=== PATIENT | male | born 1975 | race African-American/Black ===

== ENCOUNTER 2025-09-06 02:29 | Day surgery (SDC) | payer MEDICARE, SELFPAY ==
[2025-09-04 09:20] VITALS: BMI 31.6
--- NOTE | 2025-09-04 09:28 | SUR.PREOP ---
[facility] has started construction of its new state of the art ER which will open Spring 2026. With this, we anticipate parking may be a challenge for some our surgical patients and families. Parking spaces are limited but are available for all Surgical, obstetrics, and ER patients sharing this lot. If you arrive and find you are having a hard time finding a parking space, please note that we understand the challenges, please drive around the hospital and park near Hospital Entrance 1. When you enter this entrance, you can ask a volunteer to direct or take you back to the surgical waiting area to check in. We appreciate everyone?s understanding of these expected challenges while we build for your future. Report to the Outpatient Waiting Room, entrance under the green pavilion located off [address], at time 6:45a.m. on date 09/06/2025 Planned Procedure Time: 8:45a.m.? Time changes happen often and if your time is changed the preop area will call you the afternoon before. - You and your visitor will be asked to self-screen and do not enter if you have any COVID symptoms. Please call surgeon if you need to reschedule. - A mask is optional within the hospital at this time. Patients may have clear liquids (water, carbonated beverages, clear teas, apple juice) until 3 hours prior to surgery with a maximum of 20 ounces. - No food from midnight until time of surgery and no smoking, or chewing tobacco (or any form of nicotine). No chewing gum, candy or mints. Take only the following medications with a SIP of water on the morning of surgery: amopidine DO NOT STOP ANY OF YOUR OTHER PRESCRIPTION MEDICATIONS PRIOR TO SURGERY EXCEPT THE FOLLOWING Hold all vitamins and supplements for 3 days per anesthesiologist. Medications to discontinue per physician N/A Date to take last dose N/A Please no make-up, nail slovak, hairspray, perfume, deodorant, or body powder the day of surgery.? No jewelry (including any body piercings) or valuables the day of surgery, leave them at home.? Please take a shower or bath the night before, or the morning of, surgery with an antibacterial soap.? Wear comfortable, loose fitting clothing.? Children are encouraged to wear pajamas. - Jewelry must be removed prior to entering the operating room.? Rings and piercings that are not removed may be cut off. - The hospital will not accept responsibility for valuables.? - Please leave all valuables, including medications, at home the day of surgery. If you are going home after surgery, a licensed caterpillar driver must drive you home.? - NO public transportation without another adult if you receive anesthesia. - We recommend that an adult stay with you for 24 hours following discharge. - We also recommend that you do not drive, make important decision, drink alcoholic beverages, or take any drugs that were not prescribed by your health care provider for at least 24 hours after your discharge time. For Pediatric surgeries, we recommend two adults accompany the child home. Follow any additional instructions given to you from your surgeon. Telephone instructions given to Shiv Ohara and asked if any additional questions and then verbalized understanding. Patient advised to call surgeon office or pre surgery nurse liaison [phone] if any additional questions.
[2025-09-06] VITALS (10 sets, daily range): BP systolic 81–147; BP diastolic 50–92; PULSE 70–88; RESP 10–18; TEMP 36.1–36.6; O2SAT 98–100; BMI 31.8
--- OUTSIDE RECORDS SUMMARY | 2025-09-06 02:33 | XMS_ITS | Clinical Summary ---
Author Organization [facility] Address [address] [place] [address] Phone Care Team Providers Care Rolling Down Machine Operator Name Role Phone João Mandujano APRN, LOCOMOTIVE MECHANIC Primary Care Provider + Allergies Active Allergy Reactions Criticality Noted Date Comments Fish Allergy Swelling 09/19/2015 Medications atorvastatin (LIPITOR) 80 MG Tablet Take 1 Tab by mouth nightly. 90 Tab 3 6 Active carvedilol (COREG) 6.25 MG Tablet Take 1 Tab by mouth 2 times daily (with meals). 180 Tab 3 6 Active clopidogrel (PLAVIX) 75 MG Tablet Take 1 Tab by mouth daily. 90 Tab 3 6 Active nicotine (NICODERM CQ) 21 MG/24HR PATCH 24 HR 1 Patch by Transdermal route daily. 30 Patch 0 6 Active multiple vitamins-minera ls Tablet Take 1 Tab by mouth daily. 30 Tab 0 6 Active Albuterol Sulfate (VENTOLIN HFA IN) take 2 Puffs by inhalation every 4 hours as needed. 6 Active pantoprazole (PROTONIX) 40 MG Tablet Delayed Response Take 1 Tab by mouth daily. 30 Tab 0 6 Active SYMBICORT 80-4.5 MCG/ACT Aerosol INL 2 PFS PO BID 5 6 Active buPROPion, Smoking Deter, (ZYBAN) 150 MG TABLET SR 12 HR 2 6 Active buPROPion, Smoking Deter, (ZYBAN) 150 MG TABLET SR 12 HR TAKE 1 TABLET BY MOUTH DAILY FOR 3 DAYS THEN TAKE 1 TABLET BY MOUTH TWICE DAILY 60 Tab 3 6 Active amLODIPine (NORVASC) 10 MG Tablet TAKE ONE-HALF TABLET BY MOUTH DAILY 90 Tab 1 7 Active Aspirin 81 MG Tablet Take 81 mg by mouth daily. Active HYDROcodone-isabella taminophen (NORCO) 5-325 MG Tablet Take 1 Tab by mouth every 6 hours as needed for Moderate or more severe pain. 10 Tab 0 Active Active Problems Problem Noted Date Diagnosed Date Tobacco abuse counseling 01/25/2016 Pure hypercholesterolemia 01/25/2016 Cigarette nicotine dependence, uncomplicated 02/2016 Alcohol dependence 09/24/2015 Cannabis dependence, continuous 09/24/2015 Acute CVA (cerebrovascular accident) 09/14/2015 Overview (09/14/2015): R/O CVA vs peripheral neuropathy Marijuana smoker, continuous 09/14/2015 Tobacco dependence 09/14/2015 Rhabdomyolysis 09/14/2015 Alcohol abuse, daily use 09/14/2015 HTN (hypertension), permissive 09/14/2015 Immunizations Immunization Administration Dates Next Due Influenza Vaccine, Quadrivalent, PF 09/17/2015 Pneumococcal Vaccine Adult - 23 Valent 5 Family History Medical History Relation Name Comments Diabetes Mother Relation Name Status Comments Father Mother Social History Tobacco Use Types Packs/Day Years Used Date Smoking Tobacco: Every Day Cigarettes 1 14 Smokeless Tobacco: Never Tobacco Cessation:Ready to Q uit: No; Counseling Given: Yes Alcohol Use Standard Drinks/Week Comments Yes 1 (1 standard drink = 0.6 oz pure alcohol) pt states he stopped drinking since his stroke Sex and Gender Information Value Date Recorded Sex Assigned at Not on file Legal Sex Male 8:54 PM CDT Gender Identity Not on file Sexual Orientation Not on file Last Filed Vital Signs Vital Sign Reading Time Taken Comments Blood Pressure 136/80 07/21/2024 1:33 PM CDT Pulse 74 07/21/2024 1:33 PM CDT Temperature 36 C (96.8 F) 07/21/2024 1:33 PM CDT Respiratory Rate 18 07/21/2024 1:33 PM CDT Oxygen Saturation 97% 07/21/2024 1:33 PM CDT Inhaled Oxygen Concentration - - Weight 81.6 kg (180 lb) 07/21/2024 1:33 PM CDT Height 172.7 cm (5' 8) 07/21/2024 1:33 PM CDT Body Mass Index 27.37 07/21/2024 1:33 PM CDT Plan of Treatment Health Maintenance Due Date Last Done Comments Hepatitis C Virus (HCV) Screening 1973 Hepatitis B Immunization (1 of 3 - 19+ 3-dose series) 1992 Medicare Initial AWV [id number] 03/21/1994 Pneumococcal Immunization (50+ years) (2 of 2 - PCV) 09/17/2016 09/17/2015 Cologuard 2018 Colonoscopy 2018 Colorectal Cancer Screening 2018 Immunochemical Fecal Occult Blood 2018 Zoster Immunization (1 of 2) 2023 Influenza Immunization (#1) 05/22/202507/22, 08/07/2022, 06/21/2019, Additional history exists SARS-COV-2 Immunization ( - 2024- season) 2025 Respiratory Syncytial Virus (RSV) Immunization (Adult) (1 - 1-dose 75+ series) 2048 Pneumococcal Immunization Combined Discontinued 09/17/2015 DTaP/Tdap/Td Immunization Discontinued 12/22/2023 TdaP Immunization Completed 12/22/2023 Human Papillomavirus (HPV) Immunization (No Doses Required) Completed Meningococcal Immunization (ACWY) Aged Out No longer eligible based on patient's age to complete this topic Rotavirus Immunization Aged Out No lo nger eligible based on patient's age to complete this topic Insurance MEDICARE Advance Directives * Full Code (Latest Code Status on File) Date Activated Date Inactivated Comments 10/09/2015 12:26 PM 10/29/2019 12:04 PM * Full Code Date Activated Date Inactivated Comments 09/18/2015 5:11 PM 10/06/2015 2:33 PM Full Code: FULL ARREST: Attempt Resuscitation/CPR and use intubation and mechanical ventilation as indicated. PRE-ARREST: Use all measures to stabilize patient. * Full Code Date Activated Date Inactivated Comments 09/14/2015 8:01 PM 09/18/2015 5:11 PM Full Code: FULL ARREST: Attempt Resuscitation/CPR and use intubation and mechanical ventilation as indicated. PRE-ARREST: Use all measures to stabilize patient. Care Teams Rolling Down Machine Operator Relationship Specialty Start Date End Date João Mandujano, GINO, LOCOMOTIVE MECHANIC [address] [place] [address] PCP - General Internal Medicine 02/05/16
--- OUTSIDE RECORDS SUMMARY | 2025-09-06 02:33 | XMS_ITS | Data Portability ---
Author Organization [facility] Address [address] [place] [address] Care Team Providers Care Order Expediter Name Role Phone LUIS UMANA Primary Care Provider [phone] Assessment Encounter Date Assessment Date Assessment LastModified by Organization Details LastModified Time 08/07/2022 08/07/2022 Pt is stable. [email or web address] Not available 08/11/2022 08:33:28 11/03/2023 11/03/2023 Pt does not use cannabis. Not available 11/05/2023 10:33:49 12/22/2023 12/22/2023 Pt is stable. [email or web address] Not available 12/24/2023 17:47:04 08/03/2024 08/03/2024 Conjunctivitis has resolved. [email or web address] Not available 08/06/2024 08:21:50 01/09/2025 01/09/2025 Workup will proceed as below. [email or web address] Not available 01/11/2025 13:14:42 Plan of Treatment Reminders Order Date Submit Date Provider Last Modified By Organization Details Last Modified Time Details Appointments None record ed. Lab HbA1c (hemog lobin A1c), blood 2024 025 [email or web address] In-Office Order, Internal Use Only DO Not Attach Compendium DO Not Attach Compendium, Do Not Delete/merge, [id number] 13:18:06 PSA, total, serum or plasma 2023 024 [facility], [address] [place] [address], [id number], 4 13:10:32 HbA1c (hemog lobin A1c), blood 2023 024 [email or web address] In-Office Order, Internal Use Only DO Not Attach Compendium DO Not Attach Compendium, Do Not Delete/merge, [id number] 4 10:58:50 noninv asive colore ctal cancer DNA + occult blood screen ing, QL, stool 2023 024 [facility], [address], [address], [place], [address], 4 13:40:54 CBC 2023 024 [facility], [address] [place] [address] 2, [place], [address], 4 13:10:32 lipid panel, serum 2023 024 [facility], [address] [place] [address] 2, [place], [address], 4 13:10:29 CMP, serum or plasma 2023 024 [facility], [address] [place] [address] 2, [place], [address], 4 13:10:30 TSH, ultra- sensit jitendra, serum 2023 024 [facility], [address] [place] [address] 2, [place], [address], 4 13:10:31 HbA1c (hemog lobin A1c), blood 2021 022 In-Office Order, Internal Use Only DO Not Attach Compendium DO Not Attach Compendium, Do Not Delete/merge, [id number] 17:26:21 Referral pop anaya n referr al 2024 025 [email or web address] Jewell MD (Dermatology) , [address] [facility] [address], [address], [place], [address], 16:13:54 Procedures None record ed. Surgeries None record ed. Imaging None record ed. Medication Orders amlodi pine 10 mg tablet 2024 025 ANDERSON [facility] #[id number], [address], [place], [id number], 5 12:00:08 amlodi pine 10 mg tablet 2023 024 ANDERSON [facility] #[id number], [address], [place], [id number], 4 17:02:50 amlodi pine 10 mg tablet 2023 024 ANDERSON [facility] #[id number], [address], [place], [id number], 4 10:59:21 amlodi pine 10 mg tablet 2021 022 [id number], [address], [place], [id number], 2 17:26:40 Patient TargetsNo targets recorded. Patient Instructions Encounter Date Encounter Id Patient Instructions Last Modified By Organization Details Last Modified Time 08/07/2022 [id number] influenza (flu) vaccine: care instructions [email or web address] Not available 08/07/2022 17:26:22 When You Want to Lose Weight: Care Instructions [email or web address] Not available 08/11/2022 08:33:22 A healthy lifestyle: care instructions [email or web address] Not available 08/11/2022 08:33:22 learning about high blood pressure [email or web address] Not available 08/07/2022 17:26:33 11/03/2023 [id number] A healthy lifestyle: care instructions [email or web address] Not available 11/03/2023 10:58:50 learning about high blood pressure Not available 11/03/2023 10:58:50 12/22/2023 [id number] tetanus and diphtheria booster: care instructions Not available 12/22/2023 16:22:00 08/03/2024 [id number] learning about high blood pressure [email or web address] Not available 08/03/2024 17:02:41 Reason for Referral General Surgeon Referral for Lipoma of skin and subcutaneous tissue of face Referring Physician: Luis Umana, Family Medicine, Encounter Date: 01/09/2025 Results Created Date Observation Date Name Description Value Unit Range Abnormal Flag Note LastModifiedBy Organization Detail LastModifiedTime 08/07/2008/07/2022 HbA1c (hemo globi n A1c), blood HbA1c 6.3 Not Available In-Office Order Internal Use Only DO Not Attach Compendium DO Not Attach Compendium, Do Not Delete/merge, [id number] 08/07/2022 17:05:50 11/03/1911/04/2023 LIPID PANEL cholesterol, total 220 mg/dL 100-19 9 above high normal Not Available [facility] ([facility]) [address] [place], [address], 11/04/2023 13:10:29 11/03/19 24 11/04/2023 LIPID PANEL triglyceride s 126 mg/dL 0-149 Not Available [facility] ([facility]) [address] [place], [address], 11/04/2023 13:10:29 11/03/19 24 11/04/2023 LIPID PANEL HDL cholesterol 45 mg/dL >39 Not Available [facility] ([facility]) [address] [place], [address], 11/04/2023 13:10:29 11/03/19 24 11/04/2023 LIPID PANEL VLDL cholesterol preethi 23 mg/dL 5-40 Not Available [facility] ([facility]) [address] [facility], [place], [address], 11/04/2023 13:10:29 11/03/19 24 11/04/2023 LIPID PANEL LDL chol calc ([facility]) 152 mg/dL 0-99 above high normal Not Available [facility] ([facility]) [address] [place], [address], 11/04/2023 13:10:29 11/03/19 24 11/04/2023 COMP. METAB OLIC PANEL (14) glucose 101 mg/dL 70-99 above high normal Not Available [facility] ([facility]) [address] [place], [address], 11/04/2023 13:10:30 11/03/19 24 11/04/2023 COMP. METAB OLIC PANEL (14) BUN 10 mg/dL 6-24 Not Available [facility] ([facility]) [address] [place], [address], 11/04/2023 13:10:30 11/03/19 24 11/04/2023 COMP. METAB OLIC PANEL (14) creatinine 0.94 mg/dL 0.76-1 .27 Not Available [facility] ([facility]) [address] [place], [address], 11/04/2023 13:10:30 11/03/19 24 11/04/2023 COMP. METAB OLIC PANEL (14) eGFR 99 mL/mi n/1.7 3 >59 Not Available [facility] ([facility]) [address] [place], [address], 11/04/2023 13:10:30 11/03/19 24 11/04/2023 COMP. METAB OLIC PANEL (14) BUN/creatini ne ratio 11 9-20 Not Available [facility] ([facility]) [address] [place], [address], 11/04/2023 13:10:30 11/03/19 24 11/04/2023 COMP. METAB OLIC PANEL (14) sodium 139 mmol/ L 134-14 4 Not Available [facility] ([facility]) [address] [place], [address], 11/04/2023 13:10:30 11/03/19 24 11/04/2023 COMP. METAB OLIC PANEL (14) potassium 3.0 mmol/ L 3.5-5. 2 below low normal Not Available [facility] ([facility]) [address] [place], [address], 11/04/2023 13:10:30 11/03/19 24 11/04/2023 COMP. METAB OLIC PANEL (14) chloride 103 mmol/ L 96-106 Not Available [facility] ([facility]) [address] [place], [address], 11/04/2023 13:10:30 11/03/19 24 11/04/2023 COMP. METAB OLIC PANEL (14) carbon dioxide, total 23 mmol/ L 20-29 Not Available [facility] ([facility]) [address] [place], [address], 11/04/2023 13:10:30 11/03/19 24 11/04/2023 COMP. METAB OLIC PANEL (14) calcium 9.5 mg/dL 8.7-10 .2 Not Available [facility] ([facility]) [address] [place], [address], 11/04/2023 13:10:30 11/03/19 24 11/04/2023 COMP. METAB OLIC PANEL (14) protein, total 7.3 g/dL 6.0-8. 5 Not Available [facility] ([facility]) [address] [place], [address], 11/04/2023 13:10:30 11/03/19 24 11/04/2023 COMP. METAB OLIC PANEL (14) albumin 4.3 g/dL 4.1-5. 1 Not Available [facility] ([facility]) [address] [facility], [place], [address], 11/04/2023 13:10:30 11/03/19 24 11/04/2023 COMP. METAB OLIC PANEL (14) globulin, total 3.0 g/dL 1.5-4. 5 Not Available [facility] ([facility]) [address] [place], [address], 11/04/2023 13:10:30 11/03/19 24 11/04/2023 COMP. METAB OLIC PANEL (14) A/G ratio 1.4 1.2-2. 2 Not Available [facility] ([facility]) [address] [facility], [address], 11/04/2023 13:10:30 11/03/19 24 11/04/2023 COMP. METAB OLIC PANEL (14) bilirubin, total 0.3 mg/dL 0.0-1. 2 Not Available [facility] ([facility]) [address] [facility], [place], [address], 11/04/2023 13:10:30 11/03/19 24 11/04/2023 COMP. METAB OLIC PANEL (14) alkaline phosphatase 90 IU/L 44-121 Not Available [facility] ([facility]) [address] [facility], [place], [address], 11/04/2023 13:10:30 11/03/19 24 11/04/2023 COMP. METAB OLIC PANEL (14) AST (SGOT) 19 IU/L 0-40 Not Available [facility] ([facility]) [address] [facility], [address], 11/04/2023 13:10:30 11/03/19 24 11/04/2023 COMP. METAB OLIC PANEL (14) ALT (SGPT) 16 IU/L 0-44 Not Available [facility] ([facility]) [address] [facility], [place], [address], 11/04/2023 13:10:30 11/03/19 24 11/04/2023 TSH TSH 1.990 uIU/m L 0.450- 4.500 Not Available [facility] ([facility]) [address] [facility], [place], [address], 11/04/2023 13:10:31 11/03/19 24 11/04/2023 CBC, NO DIFFE RENTI AL/PL ATELE T WBC 4.8 x10e3 /uL 3.4-10 .8 Not Available [facility] ([facility]) [address] [facility], [place], [address], 11/04/2023 13:10:32 11/03/19 24 11/04/2023 CBC, NO DIFFE RENTI AL/PL ATELE T RBC 4.98 x10e6 /uL 4.14-5 .80 Not Available [facility] ([facility]) [address] [facility], [place], [address], 11/04/2023 13:10:32 11/03/19 24 11/04/2023 CBC, NO DIFFE RENTI AL/PL ATELE T hemoglobin 14.6 g/dL 13.0-1 7.7 Not Available [facility] ([facility]) [address] [place], [address], 11/04/2023 13:10:32 11/03/19 24 11/04/2023 CBC, NO DIFFE RENTI AL/PL ATELE T hematocrit 43.5 % 37.5-5 1.0 Not Available [facility] ([facility]) [address] [place], [address], 11/04/2023 13:10:32 11/03/19 24 11/04/2023 CBC, NO DIFFE RENTI AL/PL ATELE T MCV 87 fL 79-97 Not Available [facility] ([facility]) [address] [place], [address], 11/04/2023 13:10:32 11/03/19 24 11/04/2023 CBC, NO DIFFE RENTI AL/PL ATELE T MCH 29.3 pg 26.6-3 3.0 Not Available [facility] ([facility]) [address] [facility], [place], [address], 11/04/2023 13:10:32 11/03/19 24 11/04/2023 CBC, NO DIFFE RENTI AL/PL ATELE T MCHC 33.6 g/dL 31.5-3 5.7 Not Available [facility] ([facility]) [address] [place], [address], 11/04/2023 13:10:32 11/03/19 24 11/04/2023 CBC, NO DIFFE RENTI AL/PL ATELE T RDW 14.5 % 11.6-1 5.4 Not Available [facility] ([facility]) [address] [facility], [place], [address], 11/04/2023 13:10:32 11/03/19 24 11/04/2023 PROST ATE-S PECIF IC AG prostate specific Ag 1.2 NG/mL 0.0-4. 0 Moe ECLIA metho dolog y. Accor ding to the Ameri can Urolo gical Assoc iatio n, Serum PSA shoul d decre ase and remai n at undet ectab le level s after radic al prost atect brooke. The AUA defin es bioch emica l recur rence as an initi al PSA value 0.2 ng/mL or great er follo wed by a subse quent confi rmato ry PSA value 0.2 ng/mL or great er. Value s obtai chito with diffe rent assay metho ds or kits canno t be used inter ramon eably . Resul ts canno t be inter prete d as absol [place] evide nce of the prese nce or absen ce of [facility] isatu dise se. Not Available [facility] ([facility]) [address] [facility], [place], [address], 11/04/2023 13:10:32 11/03/19 24 11/03/2023 HbA1c (hemo globi n A1c), blood HbA1c 5.9 Not Available In-Office Order Internal Use Only DO Not Attach Compendium DO Not Attach Compendium, Do Not Delete/merge, [id number] 11/03/2023 10:20:39 11/07/19 24 11/07/2023 COLOG UARD cologuard result reportable Negati ve negati ve normal NEGAT JITENDRA TEST RESUL T. A negat jitendra Colog uard resul t indic ates a low likel ihood that a color ectal cance r (CRC) or advan ana adeno ma (elo omato us polyp s with more advan ana pre-m align ant featu res) is prese nt. The chan e that a perso n with a negat jitendra Colog uard test has a color ectal cance r is less than 1 in 1500 (nega tive predi ctive value >99.9 %) or has an advan ana adeno ma is less than 5.3% (nega tive predi ctive value 94.7% ). These data are based on a prosp ectiv e cross -sect ional study of 10,00 0 indiv idual s at [facility] risk for color ectal cance r who were scree chito with both Colog uard and colon oscop y. (Rachel Ward. et al, N Engl J Med 2014; 370(1 4):12 86-12 97) The paulino l value (refe rence range ) for this assay is negat jitendra. COLOG UARD RE-SC REENI NG RECOM MENDA TION: Perio dic color ectal cance r screbuck wheeler is an impor tant part of preve ntive healt hcare for asymp tomat ic indiv idual s at [facility] risk for color ectal cance r. Follo wing a negat jitendra Colog uard resul t, the Ameri can Cance r Socie ty and U.S. Multi -Soci ety Task Force scree summer guide lines recom mend a Colog uard re-sc reeni ng inter ivette of 3 years . Refer ences : Aparna can Cance r Socie ty Guide line for Color ectal Cance r Scree summer: https ://eric w.can cer.o rg/ca ncer/ colon -rect al-ca ncer/ detec tion- diagn osis- stagi ng/ac s-rec ommen datio ns.ht ml.; Jerod APONTE, Lorraine wyatt CR, Jayne grossman JK, Color ectal Cance r Scree summer: Recom menda tions for Physi cians and Patie nts from the U.S. Multi -Soci ety Task Force on Color ectal Cance r Scree summer , Am J Gastr oente rolog y 2017; 112:1 016-1 030. TEST DESCR IPTIO N: Green site algor ithmi c jaime sis of stool DNA-b zoraida lucas with hemog lobin immun oassa y. Quant itati ve value s of indiv idual bioma rkers are not repor table and are not assoc iated with indiv idual bioma rker resul t refer ence range s. Colog uard is inten ded for color ectal cance r scree summer of adult s of eithe r sex, 45 years or older , who are [facility] for color ectal cance r (CRC) . Colog uard has been appro jeremias for use by the U.S. FDA. The perfo rmanc e of Colog uard was estab lishe d in a cross secti onal study of [facility] adult s aged 50-84 . Colog uard perfo rmanc e in patie nts ages 45 to 49 years was estim ated by sub-g roup jaime sis of near- age group s. Colon oscop ies perfo rmed for a posit jitendra resul t may find as the most clini scout signi [place] n: color ectal cance r [4.0% ], advan ana adeno ma (incl uding sessi le ronald annie polyp s great er than or equal to 1cm diame ter) [20%] or non- advan ana adeno ma [31%] ; or no color ectal neopl sendy [45%] . These estim ates are deriv ed from a prosp ectiv e cross -sect ional scree summer study of , 0 [facility] for color ectal cance r who were scree chito with both Colog uard and colon oscop y. (Rachel Willis al, N Engl J Med 2014; 370(1 4):12 86-12 97.) Colog uard may produ ce a false negat jitendra or false posit jitendra resul t (no color ectal cance r or preca ncero us polyp prese nt at colon oscop y follo w up). A negat jitendra Colog uard test resul t does not guara ntee the absen ce of CRC or advan ana adeno ma (pre- cance r). The curre nt Colog uard scree summer inter ivette is every 3 years . (Amer ican Cance r Socie ty and U.S. Multi -Soci ety Task Force ). Colog uard perfo rmanc e data in a 0 patie nt pivot al study using colon oscop y as the refer ence metho d can be acces sed at the follo wing locat ion: www.e xactl abs.c om/re tatiana . Addit ional descr iptio n of the Colog uard test proce ss, warni ngs and preca ution s can be found at www.c katelynn pinto.c om. Not Available [facility] [address], [place], [address], 11/20/2023 13:40:54 01/10/20 25 01/09/2025 HbA1c (hemo globi n A1c), blood HbA1c 5.8 Not Available In-Office Order Internal Use Only DO Not Attach Compendium DO Not Attach Compendium, Do Not Delete/merge, [id number] 01/09/2025 11:47:46 Result Notes None recorded. Problems Name Problem SNOMED Code Status Onset Date Resolution Date Notes Provider Name and Address Organization Details Recorded Time Tobacco user 956328601 Active KEN Mascorro [facility] 6 13:23:18 Dyspnea 507765103 Active Grace Noyola MA [place], [place] - [facility] 6 10:52:29 Blood pressure above reference range 03824331 Active Grace Noyola [place] - [facility] 6 10:52:29 Essential hypertension 22771414 Active João g[place], [place] - [facility] 6 13:23:18 Upper respiratory infection 14507162 Active Grace Noyola [place] [facility] 6 10:52:29 Gastroesophage al reflux disease 318352885 [place] [facility] 6 13:23:18 Chronic obstructive pulmonary disease 14410809 [place] [facility] 6 13:23:18 History of cerebrovascula r accident 018174195 Active 2016 Jo[place] [facility] 7 17:12:26 Noncompliance with treatment 2643891 Active 2018 [place] [facility] 9 16:04:11 Hyperlipidemia 77594351 Active 2018 Jo[place] [facility] 9 16:04:18 Problem Notes None recorded. Medical Equipment None Reported. Allergies Allergen ID Allergen Name Allergen Category Reaction Reaction Severity Criticality Documentation Date Start Date Code Code System Note Provider Name and Address Organization Details Recorded Time 533558 Fish (substanc e) food,medi cation facial swelling severe Not available 06/21/2019 60798 1005 SNOMED Flores Aguirre MA [place], [place] - [facility] 9 14:10:34 Medications Name Sig Start Date Stop Date Status Note LastModified by Organization Details LastModified Time amoxicillin 500 mg capsule 05/10 completed Not Available Not Available Not Available atorvastati n 40 mg tablet TAKE 1 TABLET BY MOUTH EVERY DAY 07/22 completed Not Available Not Available Not Available atorvastati n 80 mg tablet 07/24 completed Not Available Not Available Not Available carvedilol 6.25 mg tablet TAKE 1 TABLET BY MOUTH TWICE DAILY 07/22 completed Not Available Not Available Not Available prednisone 10 mg tablet active Not Available Not Available Not Available ipratropium 0.5 mg-albutero l 3 mg (2.5 mg base)/3 mL nebulizatio n soln Inhale 3 mL 4 times a day by nebulizat ion route. 07/22 completed Not Available Not Available Not Available clindamycin HCl 300 mg capsule 10/09 completed Not Available Not Available Not Available azithromyci n 250 mg tablet TAKE 2 TABLETS (500 MG) BY ORAL ROUTE ONCE DAILY FOR 1 DAY THEN 1 TABLET (250 MG) BY ORAL ROUTE ONCE DAILY FOR 4 DAYS active Not Available Not Available No t Available hydrocodone 5 mg-acetamin ophen 325 mg tablet 10/09 completed Not Available Not Available Not Available clopidogrel 75 mg tablet TAKE 1 TABLET BY MOUTH EVERY DAY 07/22 completed Not Available Not Available Not Available amlodipine 5 mg tablet TAKE 1 TABLET BY MOUTH EVERY DAY 07/16 completed Not Available Not Available Not Available ciprofloxac in 500 mg tablet active Not Available Not Available Not Available sulfamethox azole 800 mg-trimetho prim 160 mg tablet 07/16 completed Not Available Not Available Not Available aspirin 81 mg tablet,roberto yed release TAKE 1 TABLET BY MOUTH DAILY 2020 active Not Available Not Available Not Avai lable amoxicillin 500 mg tablet 10/09 completed Not Available Not Available Not Available potassium chloride ER 20 mEq tablet,exte nded release(par t/cryst) 07/16 completed Not Available Not Available Not Available amlodipine 10 mg tablet Take 1 tablet every day by oral route for 90 days. 2024 active Not Available Not Available Not Avai lable pantoprazol e 40 mg tablet,roberto yed release TAKE 1 TABLET BY MOUTH EVERY DAY 07/22 completed Not Available Not Available Not Available polymyxin B sulfate 10,000 unit-trimet hoprim 1 mg/mL eye drops 08/03 completed Not Available Not Available Not Available Tylenol 325 mg tablet Take 2 tablets every 4 hours by oral route. 06/21 completed Not Available Not Available Not Available lisinopril 10 mg-hydrochl orothiazide 12.5 mg tablet active Not Available Not Available Not Available cefuroxime axetil 500 mg tablet TAKE 1 TABLET BY MOUTH TWICE DAILY FOR 10 DAYS 08/07 completed Not Available Not Available Not Available lisinopril 40 mg tablet Take 1 tablet every day by oral route. 07/16 completed Not Available Not Available Not Available Ventolin HFA 90 mcg/actuati on aerosol inhaler Inhale 2 puffs every 4-6 hours by inhalatio n route as needed. 07/22 completed Not Available Not Available Not Available Symbicort 80 mcg-4.5 mcg/actuati on HFA aerosol inhaler Inhale 2 puffs twice a day by inhalatio n route. 07/22 completed Not Available Not Available Not Available bupropion HCl 150 mg tablet,12 hr sustained-r elease(smok ing deterrent) 07/22 completed Not Available Not Available Not Available Vitals Date Recorded Body weight Body mass index (BMI) Body height Respiratory rate Body temperature Oxygen saturation Heart rate Systolic And Diastolic Provider Name and Address Organization Details Last Updated DateTime 4 36224.5 4 g 31.2 kg/m2 172.72 cm 16 /min 98.9 [degF] 99 % 105 /min 136/80 mm[Hg] Nora Kat MA [facility] 4 10:29:48 Date Recorded Body height Body mass index (BMI) Body weight Body temperature Respiratory rate Oxygen saturation Heart rate Systolic And Diastolic Provider Name and Address Organization Details Last Updated DateTime 4 172.72 cm 31.1 kg/m2 06851.5 9 g 97.7 [degF] 16 /min 99 % 79 /min 135/82 mm[Hg] Nora Kat MA [facility] 4 15:30:24 Date Recorded Body height Body mass index (BMI) Body weight Oxygen saturation Heart rate Respiratory rate Body temperature Systolic And Diastolic Provider Name and Address Organization Details Last Updated DateTime 5 172.72 cm 30.3 kg/m2 63035.8 8 g 99 % 75 /min 16 /min 97.3 [degF] 110/74 mm[Hg] Flores Aguirre MA [facility] 5 11:47:32 Date Recorded Systolic And Diastolic Provider Name and Address Organization Details Last Updated DateTime 08/03/2024 136/76 mm[Hg] Luis Umana MD Attn: Accounting,[address] [facility], [place], [address], [facility] 08/03/2024 17:08:06 Date Recorded Body height Body mass index (BMI) Body weight Oxygen saturation Heart rate Respiratory rate Body temperature Provider Name and Address Organization Details Last Updated DateTime 4 172.72 cm 31.1 kg/m2 90427.9 9 g 98 % 73 /min 16 /min 97.3 [degF] Flores Aguirre MA [facility] 4 16:43:59 Date Recorded Body height Body mass index (BMI) Body weight Respiratory rate Heart rate Oxygen saturation Body temperature Systolic And Diastolic Provider Name and Address Organization Details Last Updated DateTime 172.72 cm 32.6 kg/m2 05643.1 7 g 18 /min 86 /min 98 % 97.7 [degF] 134/78 mm[Hg] Maryanne lopez MA [facility] 2 17:05:27 Social History Question Answer Notes LastModified by Organizat ion Details LastModified Time Tobacco Smoking Status Current Every Day Smoker Marcia gee, [facility] 11/27/2015 15:25:09 Do You Have An Advance Directive? No Information not available 06/21/2019 How Many Years Have You Consumed Alcohol? 38 Had First Drink At 11 Information not available 01/09/2025 Are You Blind Or Do You Have Difficulty Seeing? No Information not available 11/03/2023 What Is Your Level Of Caffeine Consumption? Moderate M. DEW Information not available 06/21/2019 How Much Tobacco Do You Chew? None Information not available 06/21/2019 In The 14 Days Before Symptom Onset, Have You Had Close Contact With A Laboratory-confir med COVID-19 While That Case Was Ill? No Information not available 11/03/2023 In The 14 Days Before Symptom Onset, Have You Had Close Contact With A Person Who Is Under Investigation For COVID-19 While That Person Was Ill? No Information not available 11/03/2023 Have You Been To An Area Known To Be High Risk For COVID-19? No Information not available 11/03/2023 Are You Deaf Or Do You Have Serious Difficulty Hearing? No Information not available 11/03/2023 What Type Of Diet Are You Following? REGULAR Information not available 06/21/2019 Which Illicit Or Recreational Drugs Have You Used? NO Information not available 06/21/2019 Education 12 Information no t available 06/21/2019 Are There Any Guns Present In Your Home? No Information not available 06/21/2019 Hard Of Hearing Or Deaf In One Or Both Ears? No Information not available 06/21/2019 Legally Blind In One Or Both Eyes? No Information no t available 06/21/2019 Marital Status Single Informatio n not available 09/04/2015 What Was The Date Of Your Most Recent Tobacco Screening? 01/09/2025 Information not available 01/09/2025 How Many Children Do You Have? 4 Information not available 11/03/2023 What Is Your Current Pack Years? 30ormorepack years Information not available 08/03/2024 What Is Your Relationship Status? Single Information not available 11/03/2023 Do You Use Your Seat Belt Or Car Seat Routinely? Yes Information not available 11/03/2023 Seat Belts Used Routinely Yes Information not available 06/21/2019 Are You Sexually Active? No Information not available 01/09/2025 Smoke Alarm In Home Yes Information not available 06/21/2019 Do You Have Smoke And Carbon Monoxide Detectors In Your Home? Yes Information not available 08/03/2024 At What Age Did You Start Smoking Tobacco? 12 Information not available 06/21/2019 Are You Passively Exposed To Smoke? Yes Information no t available 08/03/2024 How Much Tobacco Do You Smoke? 0.25 PPD Information not available 06/21/2019 General Stress Level High Information not available 06/21/2019 Do You Use Sunscreen Routinely? No Information not available 06/21/2019 Has Tobacco Cessation Counseling Been Provided? Yes Information not available 08/03/2024 On What Date Was Tobacco Cessation Counseling Provided? 01/09/2025 Information not available 01/09/2025 How Many Years Have You Smoked Tobacco? 37 Pt. Started When He Was 12 Information not available 08/03/2024 Sex: Male Functional Status Question Answer Note LastModified by Organizat ion Details LastModified Time Do you use any illicit or recreational drugs? No Information not available 11/03/2023 Do you or have you ever used any other forms of tobacco or nicotine? No Information not available 08/03/2024 What is your level of alcohol consumption? Occasional drinks once a week 1 beer or some wine. Information not available 01/09/2025 Do you or have you ever used smokeless tobacco? Never used smokeless tobacco Information not available 06/21/2019 Are you currently employed? No Information not available 11/03/2023 Are you able to care for yourself independently? Yes Information not available 11/03/2023 What is your occupation? [email or web address] Information not available 11/03/2023 Do you or have you ever used e-cigarettes or vape? Never used electronic cigarettes Information not available 06/21/2019 What is your exercise level? None Information not available 06/21/2019 Mental Status Question Answer Note LastModified by Organization D etails LastModified Time Do you feel stressed (tense, restless, nervous, or anxious, or unable to sleep at night)? [id number] Information not available 11/03/2023 Family History Relationship Description Onset Age of this Age Resolved Age Notes LastModified by Organization Details LastModified Time Mother Asthma Not available 03/19/2016 10:52:29 Mother Diabetes mellitus [email or web address] Not available 2015 10:52:29 Mother Hypercholest erolemia [email or web address] Not available 2015 10:52:29 Mother Hypertensive disorder [email or web address] Not available 2015 10:52:29 Brother Harmful pattern of use of alcohol [email or web address] Not available 2015 10:52:29 Brother Malignant neoplasm of stomach 51 [email or web address] Not available 08/03 16:46:16 Notes:NO new reported , 01/09/25 Medical History Condition Response High Blood Pressure Y Stroke Y Immunizations Vaccine Type Date Status Note Provider Jamir jane and Address Organization Details Recorded Time Influenza, split virus, quadrivalent, PF 6 completed Not Available [facility] 10/08/2019 02:40:27 pneumococcal polysaccharide PPV23 5 completed Nora Kat MA null, [place] - [facility] 11/20/2023 15:40:27 Influenza, split virus, quadrivalent, PF 5 completed Nora Kat [place] null, [place] - [facility] 11/20/2023 15:40:28 Influenza, split virus, quadrivalent, PF 8 completed Not Available [facility] 10/08/2019 02:42:37 Influenza, split virus, quadrivalent, preservative 9 completed Not Available [facility] 10/08/2019 02:38:12 Influenza, split virus, quadrivalent, PF 2 completed Luis Umana MD Attn: Accounting[address] [place], [address], [facility] 08/11/2022 08:32:23 Tdap 4 completed Flores Aguirre MA null, [place] - [facility] 12/22/2023 16:40:27 Influenza, split virus, trivalent, PF 4 completed Luis Umana MD Attn: Accounting[address] [place], [address], [facility] 08/03/2024 17:02:41 Past Encounters Encounter ID Performer Location Encounter Start Date Encounter Closed Date Diagnosis/Indication Diagnosis SNOMED-CT Code Diagnosis ICD10 Code Diagnosis IMO Codes Diagnosis Note [id number] João Mandujano, [facility] [address] [place] [address] 09/04/2015 16:05:16 09/04/2015 17:34:48 Adult health examination 382078514 Z00.00 Screening for malignant neoplasm of prostate 174452040 Z12.5 Tobacco user 761642561 Z 72.0 Dyspnea 815515220 R06.00 Blood pres sure above reference range 27110822 R03.0 [id number] [facility] [address] [place] [address] 10/15/2015 13:50:04 10/15/2015 15:39:46 History of cerebrovascular accident 295283367 Z86.73 Essential hypertension 96410362 I10 Upper resp iratory infection 60103852 J06.9 [id number] [place] [address] [place] [address] 1 11/27/2015 14:54:00 11/27/2015 15:53:48 Essential hypertension 52854298 I10 History of cerebrovascular accident 347681456 Z86.73 Tobacco user 961838790 Z 72.0 [id number] [place] [address] [place] [address] 1 12/11/2015 14:19:47 12/11/2015 17:10:21 [id number] [place] [address] [place] [address] 1 12/18/2015 09:00:33 12/18/2015 09:45:43 Essential hypertension 12744061 I10 History of cerebrovascular accident 177375930 Z86.73 Tobacco user 275500921 Z 72.0 [id number] [facility] [address] [place] [address] 1 03/19/2016 10:39:11 03/19/2016 14:08:20 Gastroesophageal reflux disease 274794791 K21.9 Essential hypertension 31270172 I10 Chronic ob structive pulmonary disease 35479902 J44.9 Tobacco user 227090310 Z 72.0 [id number] [facility] [address] [place] [address] 1 07/16/2016 10:48:53 07/16/2016 15:11:21 Chronic obstructive pulmonary disease 93066132 J44.9 Gastroesop hageal reflux disease 616297411 K21.9 Essential hypertension 14375748 I10 History of cerebrovascular accident 339876012 Z86.73 Tobacco user 612312028 Z 72.0 Administra tion of influenza vaccine 06380695 Z23 [id number] Luis Umana MD [facility] [address] [place] [address] 1 11/19/2016 16:51:38 11/21/2016 13:26:43 Chronic obstructive pulmonary disease 23569200 J44.9 Gastroesop hageal reflux disease 141140168 K21.9 Essential hypertension 19988577 I10 Uncontroll ed type 2 diabetes mellitus 566670638 E11.65 [id number] KAYLAN Gómez [facility] [address] [place] [address] 1 05/20/2017 16:53:18 05/20/2017 17:26:02 Chronic obstructive pulmonary disease 22811388 J44.9 Tobacco user 449581139 Z 72.0 Gastroesop hageal reflux disease 206626882 K21.9 Essential hypertension 59375812 I10 History of cerebrovascular accident 891525460 Z86.73 Adult heal th examination 349650606 Z00.00 [id number] KAYLAN Gómez [facility] [address] [place] [address] 1 11/30/2017 15:29:53 12/01/2017 17:26:16 Tobacco user 771469111 Z72.0 Chronic ob structive pulmonary disease 73250102 J44.9 Gastroesop hageal reflux disease 481289581 K21.9 Essential hypertension 83210409 I10 [id number] KAYLAN Gómez [place] [address] [address] 06/07/2018 14:01:15 06/10/2018 11:00:41 Tobacco user 116395641 Z72.0 Chronic ob structive pulmonary disease 94044241 J44.9 Gastroesop hageal reflux disease 769847208 K21.9 History of cerebrovascular accident 885769960 Z86.73 Essential hypertension 13901687 I10 Adult heal th examination 603361334 Z00.00 Administra tion of influenza vaccine 79311903 Z23 [id number] MD Helene Ann 14 IM [address] [facility] [place] [address] 11/29/2018 15:40:15 11/30/2018 09:43:40 Tobacco user 823482677 Z72.0 Chronic ob structive pulmonary disease 21468264 J44.9 Gastroesop hageal reflux disease 051835017 K21.9 History of cerebrovascular accident 280428357 Z86.73 Essential hypertension 13494985 I10 Noncomplia nce with treatment 4670004 Z91.19 Hyperlipidemia 23900937 E78.5 [id number] MD Helene Ann 14 IM 4 [facility] [place] [address] 01/11/2019 14:29:45 01/12/2019 10:12:25 Essential hypertension 19893010 I10 [id number] MD Helene Ann 14 IM 4 [facility] [place] [address] 05/10/2019 09:31:43 05/12/2019 10:06:51 Tobacco user 502935503 Z72.0 Chronic ob structive pulmonary disease 54159729 J44.9 Gastroesop hageal reflux disease 066015230 K21.9 History of cerebrovascular accident 291456416 Z86.73 Hyperlipidemia 05115405 E78.5 Essential hypertension 89881479 I10 Noncomplia nce with treatment 4342254 Z91.19 Refuses to take ALL meds [id number] MD Helene Ann 14 IM 4 [facility] [place] [address] 06/21/2019 14:05:09 06/23/2019 12:08:34 Essential hypertension 62687742 I10 Smoker 06268954 F17.200 He was exhorted to quit. History of cerebrovascular accident 758861388 Z86.73 Adult heal th examination 073963971 Z00.00 [id number] MD Helene Ann 14 IM [address] [facility] [place] [address] 07/22/2019 14:56:12 07/26/2019 15:24:19 Chronic obstructive pulmonary disease 44640254 J44.9 Essential hypertension 92517717 I10 Adult heal th examination 707067886 Z00.00 No family history of prostate cancer Smoker 59996913 F17.200 He was exhorted to quit. [id number] MD Helene Ann 14 IM [address] [facility] [place] [address] 10/09/2020 09:07:38 10/10/2020 13:09:30 Essential hypertension 11159556 I10 [id number] MD Helene Ann 14 IM 4 [facility] [place] [address] 08/30/2021 15:59:18 09/02/2021 13:38:07 Essential hypertension 90283936 I10 Screening for malignant neoplasm of colon 156546822 Z12.11 pt is at average risk [id number] MD Helene Ann 14 IM [address] [facility] [place] [address] 08/07/2022 16:33:56 08/11/2022 11:44:16 Adult health examination 237581932 Z00.00 No family history of prostate cancer Administra tion of influenza vaccine 20040822 Z23 Prediabetes 624800162 R7 3.03 Essential hypertension 89197748 I10 Obesity 740668307 E66.9 [id number] MD Helene Ann 14 IM [address] [facility] [place] [address] 11/03/2023 10:15:19 11/06/2023 09:33:44 Obesity 795456972 E66.9 Essential hypertension 80922460 I10 Prediabetes 383527790 R7 3.03 Screening for malignant neoplasm of prostate 577157433 Z12.5 Screening for malignant neoplasm of colon 940402754 Z12.11 pt is at average risk Smoker 46627327 F17.200 1/3 ppd--he started when he was 12, 1/2 ppd until 2022--he thus has an 18 pack-year history of smoking Current drinker 880367 F10.90 weekend drinker [id number] MD Helene Ann 14 IM [address] [facility] [place] [address] 12/22/2023 15:13:04 12/30/2023 12:21:21 HIV screening declined 2821738518 79080 Z53.20 Administra tion of diphtheria, pertussis, and tetanus vaccine 179751196 Z23 Screening for malignant neoplasm of prostate 525751553 Z12.5 PSA was WNL on 11-03-23 [id number] MD Helene Ann 14 IM 4 [facility] [place] [address] 08/03/2024 16:37:28 08/15/2024 10:17:58 Influenza immunization advised 415539014 Z71.85 Essential hypertension 98770594 I10 [id number] MD Helene Ann 14 IM 4 [facility] [place] [address] 01/09/2025 11:25:30 01/12/2025 10:28:06 Positive screening for depression on PHQ-9 (Patient Health Questionnaire 9) 6331067858 18329 Z13.31 5456226609 PHQ=04/16-- observatio n for present Prediabetes 425043624 R7 3.03 [id number] Essential hypertension 03097928 I10 Screening for malignant neoplasm of prostate 188385344 Z12.5 168303 PSA was WNL on 11-03-23 Screening for malignant neoplasm of colon 776481719 Z12.11 933747 pt is at average risk; cologuard was negative on 11-07-2023 Lipoma of skin and subcutaneous tissue of face 75283927 D17.0 912058 Health Concerns Section Related Observation LastModified by Organization Detai ls LastModified Time None Recorded Concern Status LastModified by Organization Details LastModified Time None Recorded Advance Directives Directive N: Payers Insurance Date Sequence Insurance Name Policy Number Policy Chavarria Covered Member ID Chavarria Member ID Guarantor Name 01/12/2025 1 [place] Shiv Ohara [id number] Shiv Ohara 09/03/2021 3 [place] [facility] Shiv Ohara [id number] Shiv Ohara 01/12/2025 1 [facility] (MEDICARE REPLACEMENT/AD VANTAGE - PPO) Shiv Ohara [id number] Shiv Ohara 01/06/2025 [place] [facility] Shiv Ohara [id number] Shiv Ohara 01/12/2025 2 [facility] (MEDICARE REPLACEMENT/AD VANTAGE - HMO) Shiv Ohara [id number] Shiv Ohara 2025 2 [place] WHEN [place] OR [place]IC[place] REPLACEMENT PRIMARY) Shiv Ohara [id number] Shiv Ohara 09/03/2021 [place] [facility] Shiv Ohara [id number] Shiv Ohara 09/03/2021 1 [place] Shiv Ohara [id number] Shiv Ohara Notes Date Note Type Note Provider Name and Address Organization Details Recorded Time 08/07/2022 text/html ROS as noted in the HPI Annual checkup. No acute issues. Luis Umana MD Attn: Accounting[address] [facility], [place], [place], [address] [place] [address], [place] - [facility] 08/11/2022 08:39:48 11/03/2023 text/html ROS as noted in the HPI First visit in 15 months. Pt presents for a regular checkup. Luis Umana MD Attn: Accounting[address] [facility], [place], [address] [place] [address], [place] [facility] 11/05/2023 10:34:11 12/22/2023 text/html ROS as noted in the HPI Regular checkup. Luis Umana MD Attn: Accounting,[address] [facility], [place], [address] [place] [address], [place] [facility] 12/24/2023 17:47:36 08/03/2024 text/html ROS as noted in the HPI Sxs of conjunctivitis have now resolved. Luis Umana MD Attn: Accounting[address] [facility], [place], [address], [place] [facility] 08/06/2024 08:22:15 01/09/2025 text/html ROS as noted in the HPI Regular checkup. Pt would like the lipoma at the right side of his head removed. Luis Umana MD Attn: Accounting[address] [facility], [place], [address], [place] [facility] 01/11/2025 13:15:02
--- NOTE | 2025-09-06 06:44 | P.OP_ITS ---
Procedure Note - Detailed Date of Procedure 09/06/25 Pre-op Diagnosis mass on face Post-op Diagnosis Same Procedure Performed right facial mass excision Surgeon Chidi Hein MD Customer Solutions Architect melvina roth pa-c Anesthesia MAC Description of Procedure patient seen and consented and site marked. Patient was taken back to OR on stretcher in supine position. Timeout was performed with anesthesia, surgeon and staff agreeing on patient's name, site and surgery to be performed. SCDs were placed on lower extremities and inflated. antibiotics were given IV. After general anesthesia was administered the area was prepped and draped in sterile fashion. I injected 9cc 1%lido with epi and 0.5%marcaine plain around the mass. I proceeded with making an elliptical incision around the central punctum and affected overlying skin through skin and dermis with 15 blade scalpel extending superiorly and inferiorly resecting dog ears for improved closure. scalpel and bovie cautery were used to elevated skin flaps and dissect through subq donw to cyst. I proceeded with circumferential dissection around cyst which appeared to have invaded and distorted the orbicularis and fascia. After resection I irrigated with normal saline and hemostasis with bovie cautery. I repaired the fascial defect with 4-0 vicryl. 5-0 monocryl used for dermis and 5-0 prolene for subcuticular. diameter of cyst was 3.2cm. length of closure 4cm a dressing of mastisol, steri-strip, 4x4 and pressure dressing applied. Patient awaken from anesthesia and transferred to recovery room in stable conditiion. Complications: none EBL: 3cc Disposition: patient tolerated well and will go home later today. Melvina Roth PA-C was essential for positioning, retraction, closure and dressing placement. [facility] Billing Surgery - Charge Forward: Surgery Billing ([id number] same for melvina adding )
--- NOTE | 2025-09-06 06:44 | WPDHPUPDATE1 ---
History and Physical Update Update Date/Time: 09/06/25 06:44 Patient seen and examined in pre-operative holding area. No interval change in medical history or symptoms. Patient recalls previous discussion of benefits and alternatives to procedure. Continues to desire to proceed with right facial mass excision. Reviewed procedure, post-op expectations and risks including but not limited to bleeding, infection,undesireable cosmetic appearance, recurrence.. I discussed the possible use of assistants and their participation in the case. Patient stated understanding and signed the consent form wishing to proceed.
[2025-09-06] MEDS: LACTATED RINGERS 1,000 ML 30 ML IV CONT ×2 (08:35→10:53)
[2025-09-06] MEDS: ACETAMINOPHEN 500 MG TABLET 1000 MG PO (08:37)
--- NOTE | 2025-09-06 10:04 | P.PNAN_ITS ---
Anes - Initial Pre Proc Eval Procedure: Operation Date: 09/06/25 10:15 Proposed Procedures p Excision Facial Mass Right [employer] - Chidi Hein MD Date/Time: 09/06/25 10:04 Surgeon: Chidi Hein MD Pre Op Diagnosis: right latter-day facial mass Pre Op Diagnosis: mass on face Patient Data Age: 50 Gender: M Height: 1.7 m Weight: 92.4 kg Last Vital Signs Temp 36.6 C 09/06/25 08:33 Pulse 71 09/06/25 08:33 Resp 18 09/06/25 08:33 BP 147/78 H 09/06/25 08:33 Pulse Ox 100 09/06/25 08:33 O2 Del Method Room Air 09/06/25 08:33 Allergies Allergy/AdvReac Type Severity Reaction Status Date / Time No Known Allergies Allergy Verified 09/06/25 08:32 Home Medications ?Medication ?Instructions ?Recorded ?Confirmed ?Type aspirin 81 mg tablet 81 mg PO DAILY 06/12/2508/21 History Held on 09/06/25. Instructions: Resume on 09/07/25. amlodipine 10 mg PO DAILY 08/28/2508/21 History Patient hx anesthesia problems: none Family hx anesthesia problems: none Results Review: All pre-operative results and documents have been reviewed as part of the pre- operative evaluation. [facility] Past Medical History Medical History History of stroke Hypertension Social History Social History Social History: Caffeine-tea Smoking packs per day: 0.3 Smoking cigarettes per day: 6.0 Years smoked: 38 Smoking pack-years: 11.40 Smoking status: Current every day smoker Tobacco type: cigarettes Alcohol intake: current Alcohol use details: monthly Substance use: never Substance use type: does not use Anes - Eval Final PreProcedure Day of Procedure 09/06/25 10:04 Patient weight: obese Heart: regular rate and rhythm Lungs: normal air movement Airway: Mallampati scale class II Neurological: alert and oriented Last oral intake: >/= 8 hours ASA classification: III Emergent: no Anesthetic plan: proceed Anesthesia type and monitoring: general LMA and standard monitoring Results Review: All pre-operative results and documents have been reviewed as part of the pre- operative evaluation. Informed Consent: The patient's anesthetic plan and its attendant risks and benefits were discussed with the patient/family/POA. Questions were solicited and answers provided to the satisfaction of the patient/family/POA.
[2025-09-06] MEDS: ceFAZolin 2 GM in SODIUM CHLORIDE 0.9% IV 50 ML 100 ML IVPB (10:09)
[2025-09-06] MEDS: BUPivacaine HCL 0.5% 10 ML AMP 30 ML INFILTRATE (10:20)
[2025-09-06] MEDS: LIDO 1%/EPINEPHRINE 1:100,000 50 ML VIAL 10 ML INFILTRATE (10:21)
--- NOTE | 2025-09-06 10:27 | S_PTH ---
PATIENT: Shiv Ohara LOC: [facility] U#:[id number] AGE/SX: 50/M ROOM: RE09/06/[address]: Chidi Hein MD : 1975 BED: DIS: 09/06/2025 SPEC #: [id number] RECD: 09/06/25 13:37 STATUS: JOEY REChely #: [id number] GRACY: 09/06/25 10:[address]: Chidi Hein DEPT: [facility] Surgical RECD BY: Yesi Duggan ENTERED: 09/06/25 13:37 SP TYPE: Surgical OTHR DR: ADVERTISING ACCOUNT MANAGER PHYSICIAN Tissues: A - Cyst Procedures: Hematoxylin and Eosin Stain Gross and Microscopic Level 4
--- NOTE | 2025-09-06 12:28 | SUR.PHASEII ---
PATIENT READY FOR DISCHARGE, DISCONNECTED FROM MONITORS. WAITING ON RIDE HOME.
== END 2025-09-06 13:10 | disposition home or self-care (01) ==
PROVIDERS: Visit Provider Plastic Surgery
PROC: (CPT 11444; principal; 2025-09-06 10:15)
DX: L72.0 Epidermal cyst (principal); I10 Essential (primary) hypertension; F17.210 Nicotine dependence, cigarettes, uncomplicated; E66.9 Obesity, unspecified; Z68.31 Body mass index [BMI] 31.0-31.9, adult; Z79.82 Long term (current) use of aspirin; Z86.73 Personal history of transient ischemic attack (TIA), and cerebral infarction without residual deficits
CPT/HCPCS: 11444; 12052; 88305; J0690; A9270; J2003; J2004; J2250; J2405; J2704; J3010; J7120